=== PATIENT | female | born 1945 | race Caucasian/White ===

== ENCOUNTER → 2017-02-03 | Outpatient (CLI) | payer MEDICARE, OTHER ==
[~2017-02-03] MED LIST: ACETAMINOPHEN PO; ADVAIR 2501 DISK W/D PO; ADVAIR DISKU1 250/50 INH; ALBUTEROL 0.5ML INH; ALBUTEROL MININEB NEB; ALDACTAZIDE; ALDACTONE PO; ANUSOL-HC CREAM30 GM TOP; ASPIRINEC; ASPIRINEC PO; BACTRIM DS TABL1 TAB PO; BACTROBAN15 GM TOP; CALCIUM 600 +1 EAC3 PO; CIPRO PO; COLACE PO; COMBIVENT MININEB NEB; COMBIVENT14.7 GM INH; DARVOCET-N 1001 TAB; DIOVAN HCT 80/11 TAB PO; DIOVAN80 M1 PO; FIORICET 50-321 EACH PO; FISH OIL 1,0001 EAC1 PO; IBUPROFEN; KCL PO; LASIX PO; LIPITOR; LISINOPRIL PO; LOPRESSOR; LOPRESSOR PO; LORTAB 7.5-5001 TAB PO; MACROBID 100 M100 MG PO; NILSTAT PO; NORVASC PO; OS CAL PO; PERCOCET10 PO; PREDNISONE PO; PREDNISONE10 MG PO; PRENATAL1 TA1 PO; PRILOSEC PO; PROTONIX PO; SPIRIVA18 MCG INH; SYMBICORT INH; ZOCOR PO; [UNRECOGNIZED DRUG - OTHER]; [UNRECOGNIZED DRUG - OTHER] PO
--- NOTE | ~2017-02-03 | CR210 ---
[facility] A Service of [facility] & [facility] RADIOLOGY TEXT RESULTS PATIENT: LEXIE BRONSON LOCATION: [facility] : 41 UNIT #: [id number] AGE: [address]: DODIE JEFFERSON MD SEX: F ORDER DR: [id number] [facility] [address] [place], [place] [address] [id number] O MR#: [id number] Acc #: [id number] NAME: LEXIE BRONSON. : 1945 SEX: F STUDY DATE/TIME: 02/03/2017 16:17 UNIT: [facility] ROOM: STUDY DESCRIPTION: CR Ribs Uni 2 View W PA Ch Lt Attending Physician: Dodie Jefferson M.D. Referring Physician: Dodie Jefferson M.D. Ordering Physician: Dodie Jefferson M.D. Primary Care Physician: Dodie Jefferson M.D. MEDICAL IMAGING REPORT This report is preliminary unless electronic signature is present EXAM Chest and left ribs, 02/03 INDICATIONS Left side rib pain for 5 days. No trauma. FINDINGS PA chest x-ray was obtained in addition to a left rib series. Comparison made with chest x-ray from 06/20/2016. Cardiomegaly is stable. There is chronic pleural fluid or pleural scarring at the left base. Postop changes noted in the left lung. No pneumothorax. No acute rib fracture or other rib lesion identified. Patient does appear to have some old left side rib fractures. There is diffuse atherosclerotic disease. There is a left renal artery stent incidentally noted. IMPRESSION Stable appearance of the chest. No acute rib fracture or other rib lesion is seen. There are old left side rib fractures noted. Dictated by... Bob Lim Jr., M.D. THIS IS AN ELECTRONICALLY VERIFIED REPORT Bob Lim Jr., M.D. at 02/05/2017 8:27 AM FREIDAK/sherita TD: 02/04/2017 20:34 JOB #: [id number] MEDICAL IMAGING REPORT [facility] A Service of [facility] & [facility] RADIOLOGY TEXT RESULTS PATIENT: LEXIE BRONSON LOCATION: [facility] #: [id number] : 41 UNIT #: [id number] AGE: [address]: DODIE JEFFERSON MD SEX: F ORDER DR: Page 1 of 1 COPY
== END | disposition home or self-care (01) ==
LOC: CRAD 15:17
DX: R07.81 Pleurodynia (principal)
CPT/HCPCS: 71101